=== PATIENT | female | born 1950 | race Caucasian/White ===

== ENCOUNTER 2022-01-05 09:35 | Emergency (ER) | payer MEDICARE, OTHER ==
[~2022-01-05] VITALS: Ht 170.2 cm; Wt 82.3 kg
[2022-01-05 09:47] VITALS: TEMP 97.8
[2022-01-05] MEDS ORDERED: NICODERM C21 MG/PATC TD (09:52)
[2022-01-05] MEDS ORDERED: LOMOTIL 0.025 M1 TAB PO (09:52)
[2022-01-05] MEDS ORDERED: MYCOLOG CREAM 115 GM TP (09:53)
[2022-01-05] MEDS ORDERED: AMBIEN 10MG10 MG PO (09:53)
[2022-01-05] MEDS ORDERED: SYNTHROID0.088 MG/T PO (09:55)
[2022-01-05] MEDS ORDERED: VIIBRYD20 MG PO (09:55)
[2022-01-05] MEDS ORDERED: DIOVAN 80MG80 MG PO (09:55)
[2022-01-05] MEDS ORDERED: HCTZ 25MG TAB25 MG PO (09:56)
[2022-01-05] MEDS ORDERED: CELEBREX 200MG200 MG PO (09:56)
[2022-01-05] MEDS ORDERED: ZETIA 10MG TAB10 MG PO (09:56)
[2022-01-05] MEDS ORDERED: GLUCOPHAGE500 MG/TAB PO (09:57)
[2022-01-05 10:41] LABS: COLLECTION METHOD CLEAN CATCH
[2022-01-05 10:46] LABS: BASO # 0.1 K/mm3 (0.0-0.2); BASO % 0.7 % (0.0-2.0); EOS # 0.1 K/mm3 (0.0-0.7); EOS % 1.6 % (0.0-4.0); GRAN # 5.3 K/mm3 (1.4-6.5); GRAN % 75.1 % (42.2-75.2); HEMATOCRIT 41.8 % (37.0-47.0); HEMOGLOBIN 13.9 g/dl (12.5-16.0); LYMPH # 1.1 K/mm3 (1.2-3.4); LYMPH % 15.5 % (20.0-51.0); MEAN CELL VOLUME 91 fl (80.0-100.0); MEAN CORPUSCULAR HEMOGLOBIN 30 pg (27-31); MEAN CORPUSCULAR HGB CONC 33 g/dl (33.0-37.0); MEAN PLATELET VOLUME 9.2 fl (7.4-10.4); MONO # 0.5 K/mm3 (0.1-0.6); MONO % 6.8 % (1.7-9.3); PLATELET COUNT 263 K/mm3 (130-400); RED BLOOD COUNT 4.61 M/mm3 (4.10-5.30); REDCELL DISTRIBUTION WIDTH-CV 11.9 % (11.5-14.5)
[2022-01-05 10:49] LABS: MUCOUS Present (NOT PRESENT); PH 6 (5-8); SQUAMOUS EPITHELIAL 0-2 /hpf (0-10); URINE APPEARANCE Clear (CLEAR/HAZY); URINE BACTERIA None Seen /hpf (NONE SEEN); URINE BILIRUBIN Negative (NEGATIVE); URINE BLOOD Negative (NEGATIVE); URINE COLOR Yellow (YELLOW); URINE GLUCOSE Negative (NEGATIVE); URINE KETONE Trace (NEGATIVE); URINE LEUKOCYTE ESTERASE Negative (NEGATIVE); URINE NITRATE Negative (NEGATIVE); URINE PROTEIN(semi-quant) Negative (NEGATIVE); URINE UROBILINOGEN Negative (NEGATIVE)
[2022-01-05 11:05] LABS: ALBUMIN 4.2 gm/dL (3.4-4.8); BILIRUBIN,TOTAL 0.4 mg/dL (0.2-1.2); C-REACTIVE PROTEIN 0.12 mg/dL (0.00-0.50); CALCIUM 9.5 mg/dL (8.4-10.2); CREATININE, serum 0.89 mg/dL (0.57-1.11); POTASSIUM 4.2 mmol/L (3.5-4.5); TOTAL PROTEIN 7.8 gm/dL (6.2-8.1)
[2022-01-05 11:40] VITALS: BP 130/69; PULSE 65
== END 2022-01-05 11:47 | disposition home or self-care (01) ==
LOC: COL.ER 09:35
PROVIDERS: Family Medicine
DX: E86.0 Dehydration (principal); R10.9 Unspecified abdominal pain; Z90.49 Acquired absence of other specified parts of digestive tract
CPT/HCPCS: J2405; J7120